=== PATIENT | female | born 1960 | race Hispanic/Latino ===

== ENCOUNTER 2017-11-23 07:42 | Inpatient (IN) | payer MEDICAID, OTHER ==
[~2017-11-23] VITALS: Ht 160 cm; Wt 79.4 kg
[2017-11-23 08:42] LABS: BASOPHILS % 0.8 % (0.0-1.0); EOSINOPHILS # (AUTO) 0.1 (0.0-0.4); EOSINOPHILS % 3.7 % (0.0-6.0); HEMATOCRIT 28.7 % (34.2-44.1); HEMOGLOBIN 8.9 g/dL (12.0-16.0); LYMPHOCYTES # (AUTO) 0.8 (1.0-3.2); LYMPHOCYTES % 20.5 % (18.0-39.1); MEAN CORPUSCULAR HEMOGLOBIN 26.4 pg (28-32); MEAN CORPUSCULAR VOLUME 85.2 fL (81-99); MONOCYTES # (AUTO) 0.2 (0.2-0.8); MONOCYTES % 5.3 % (4.4-11.3); NEUTROPHILS # (AUTO) 2.6 (2.1-6.9); NEUTROPHILS % 68.9 % (38.7-80.0); PLATELET COUNT 73 x10e3/uL (140-360); RED BLOOD COUNT 3.37 x10e6/uL (3.6-5.1); RED CELL DISTRIBUTION WIDTH 19.6 % (11.7-14.4)
[2017-11-23 08:47] LABS: INR 1.16; PROTHROMBIN TIME 13.9 seconds (11.9-14.5)
[2017-11-23 08:48] LABS: PARTIAL THROMBOPLASTIN TIME 32.4 seconds (23.8-35.5)
[2017-11-23 08:54] LABS: ALANINE AMINOTRANSFERASE 19 IU/L (0-55); ALBUMIN 3.1 g/dL (3.5-5.0); ALBUMIN/GLOBULIN RATIO 0.9 (0.8-2.0); ALKALINE PHOSPHATASE 386 IU/L (40-150); ANION GAP 13.6 mmol/L (8-16); BLOOD UREA NITROGEN 13 mg/dL (7-26); BUN/CREATININE RATIO 16 (6-25); CARBON DIOXIDE 21 mmol/L (22-29); CHLORIDE 112 mmol/L (98-107); CREATINE KINASE 36 IU/L (29-168); CREATININE, SERUM 0.83 mg/dL (0.57-1.11); EST GLOMERULAR FILTRATION RATE > 60 ML/MIN (60-); GLUCOSE 128 mg/dL (74-118); POTASSIUM 3.6 mmol/L (3.5-5.1); SODIUM 143 mmol/L (136-145)
--- NOTE | 2017-11-23 10:16 | Diagnostic Imaging Report ---
PROCEDURE: CHEST SINGLE (PORTABLE) COMPARISON: None. INDICATIONS: CHEST PAIN FINDINGS: LUNGS: Mild pulmonary edema. PLEURA: No effusions or pneumothorax. HEART \T\ MEDIASTINUM: The heart is enlarged. Sternotomy wire sutures and mediastinal clips are present. BONES \T\ SOFT TISSUES: No acute findings. CONCLUSION: Cardiomegaly with mild pulmonary edema. Michoacano King D.O. Dictated by: Michoacano King D.O. on 11/23/2017 at 10:15 Electronically approved by: Michoacano King D.O. on 11/23/2017 at 10:15
[2017-11-23] MEDS ORDERED: SODIUM CHLORIDE 0.9% 1000ML 2,000 ML ONE (11:23)
[2017-11-23] MEDS ORDERED: NALOXONE HCL 2MG/2 ML SYRINGE ONE (11:24)
[2017-11-23] MEDS ORDERED: SODIUM CHLORIDE FLUSH 10 ML SYR INJ PRN (11:45)
[2017-11-23 12:02] LABS: % IRON SATURATION 10 % (15-50); IRON 35 ug/dL (50-170); TOTAL IRON BINDING CAPACITY 344 ug/dL (261-478); TRANSFERRIN 246 mg/dL (180-382)
[2017-11-23] MEDS ORDERED: ASPIRIN 325 MG TAB PO STA (13:43)
[2017-11-23] MEDS ORDERED: MORPHINE SULFATE 2 MG/ML SYR IV STA (13:43)
[2017-11-23] MEDS ORDERED: ASPIRIN 325 MG TAB PO ONE (13:45)
[2017-11-23] MEDS ORDERED: MORPHINE SULFATE 2 MG/ML SYR IV ONE (13:45)
--- OUTSIDE RECORDS SUMMARY | 2017-11-23 15:32 | XMS REPORT | Clinical Summary ---
Author Author [facility] Address Unknown Phone Unavailable Care Team Providers Care Music Professor Name Role Phone PCP Unavailable Allergies Not on File Current Medications Not on file Active Problems Not on file Social History Tobacco Use Types Packs/Day Years Used Date Never Assessed Sex Assigned at Date Recorded Not on file Last Filed Vital Signs Not on file Plan of Treatment Not on file Results Not on fileafter 11/22/2016
--- OUTSIDE RECORDS SUMMARY | 2017-11-23 15:32 | XMS REPORT ---
Author Author [facility] Address Unknown Phone Unavailable Care Team Providers Care Rn Peritoneal Dialysis Name Role Phone SOLO MAYO Unavailable Unavailable Problems This patient has no known problems. Allergies, Adverse Reactions, Alerts This patient has no known allergies or adverse reactions. Medications This patient has no known medications. Results Test Description Test Time Test Comments Text Results Atomic Results Result Comments CHEST SINGLE (PORTABLE) [place] [address] Patient Name: ADIA COLES MR #: [id number] : 1960 Age/Sex: 57/F Req #: [id number] Adm Physician: Ordered by: SOLO MAYO MD Report #: [id number] Location: ER Room/Bed: Procedure: [id number] DX/CHEST SINGLE (PORTABLE) Exam Date: 11/23/17 Exam Time: 0905 REPORT STATUS: Signed PROCEDURE: CHEST SINGLE (PORTABLE) COMPARISON: None. INDICATIONS: CHEST PAIN FINDINGS: LUNGS: Mild pulmonary edema. PLEURA: No effusions or pneumothorax. HEART T MEDIASTINUM: The heart is enlarged. Sternotomy wire sutures and mediastinal clips are present. BONES T SOFT TISSUES: No acute findings. CONCLUSION: Cardiomegaly with mild pulmonary edema. Maria Fernanda King D.O. Dictated by: Maria Fernanda King D.O. on 11/23/2017 at 10:15 Electronically approved by: Maria Fernanda King D.O. on 11/23/2017 at 10:15 Dictated By: MARIA FERNANDA KING DO 1015 Transcribed By: THAIS on 11/23/17 1015 COPY TO: SOLO MAYO MD
[2017-11-23] MEDS ORDERED: ZOLOFT50 MG PO (18:25)
[2017-11-23] MEDS ORDERED: METOPROLOL TART25 MG PO (18:46)
[2017-11-23] MEDS ORDERED: FAMOTIDINE20 MG PO (18:46)
[2017-11-23] MEDS ORDERED: ATORVASTATIN CA20 MG PO (18:58)
[2017-11-23] MEDS ORDERED: LOSARTAN POTASS25 MG PO (18:58)
[2017-11-23] MEDS ORDERED: ULTRAM50 MG PO (18:58)
[2017-11-23] MEDS ORDERED: CITALOPRAM HBR20 MG PO (18:58)
[2017-11-23] MEDS ORDERED: CLOPIDOGREL75 MG PO ×2 (18:58→19:03)
[2017-11-23] MEDS ORDERED: FENOFIBRATE145 MG PO (18:58)
[2017-11-23] MEDS ORDERED: BUPROPION HCL75 MG PO (18:58)
[2017-11-23] MEDS ORDERED: FUROSEMIDE40 MG PO (18:58)
[2017-11-23] MEDS ORDERED: NEXIUM40 MG PO (19:03)
[2017-11-23] MEDS ORDERED: ASPIRIN81 MG PO (19:03)
[2017-11-23] MEDS ORDERED: PEPCID20 MG PO (19:03)
[2017-11-23 20:54] VITALS: BP 155/68
[2017-11-23 21:53] VITALS: BP 155/68
[2017-11-23] MEDS ORDERED: NITROGLYCERIN0.4 MG SL (22:20)
[2017-11-23] MEDS ORDERED: NITROGLYCERIN 0.4 MG SUBL SL PRN (22:30)
[2017-11-24] VITALS (7 sets, daily range): BP systolic 99–121; BP diastolic 52–59
[2017-11-24] MEDS: MORPHINE SULFATE 2 MG/ML SYR IV PRN ×2 (00:35→04:14)
[2017-11-24] MEDS ORDERED: INFLUENZA VIRUS VAC SPLIT INJ 0.5 ML SYR IM ONE (01:15)
[2017-11-24] MEDS ORDERED: MORPHINE SULFATE 2 MG/ML SYR IV PRN (05:30)
[2017-11-24 08:38] LABS: ALBUMIN 2.9 g/dL (3.5-5.0); BILIRUBIN,DIRECT 0.4 mg/dL (0.0-5.0)
--- NOTE | 2017-11-24 10:18 | Consultation ---
DATE OF CONSULTATION: November 24, 2017 GASTROENTEROLOGY CONSULTATION REASON FOR CONSULTATION: Anemia. HISTORY OF PRESENT ILLNESS: Ms. Yusuf is a 57-year-old woman who comes in with chest pain. She reports a history of chest pain. It frequently starts in the middle of her retrosternal area and radiates to her back and down her left arm. It is associated with fatigue and shortness of breath. When she does some deep breathing, it can be improved, but usually she is dependent on nitroglycerin. This episode did not relieve with nitroglycerin. She presented to the ER. It was of moderate severity. She reports that she was recently admitted at [facility] in August or September also for chest pain. She had some sort of evaluation there. She recalls that a lot of her health problems started back in March at which time she had a gallbladder rupture with multiorgan failure, and ultimately required even a partial colectomy with colostomy, which has since been reversed this past September or October. Since then, she has had fecal incontinence. She is not able to tell me why she ended up with the colostomy. She reports her memory has been poor. She reports that she has had abnormal liver tests since the gallbladder problems. She denies any overt bleeding. She had a colonoscopy not too long ago before the reversal of her colostomy. She has not had an upper endoscopy. She does not ever truly use NSAIDs, although she is on aspirin. For p.r.n. pain, she uses just Tylenol. She does have lower abdominal pain, which she said has been present since the ostomy reversal. She also has epigastric tenderness, but she is not sure how long she has had that. She denies any nausea, vomiting, dysphagia, or odynophagia. PAST MEDICAL HISTORY 1. Coronary artery disease, status post coronary artery bypass graft with history of angina requiring nitroglycerin. 2. Anemia. 3. Elevated LFTs. 4. Diabetes. 5. Hypertension. SURGICAL HISTORY: Includes cholecystectomy, colostomy and reversal, coronary artery bypass graft, . MEDICATIONS: Reviewed. Please see MAR medication reconciliation form. ALLERGIES: REVIEWED. PLEASE SEE MAR MEDICATION RECONCILIATION FORM. SOCIAL HISTORY: She previously smoked. She quit this past March in 2016 when she was in the hospital. She denies any alcohol use. FAMILY HISTORY: Positive for diabetes, coronary artery disease, cancer in her son, which was esophagus when he was only 26 or 27. Her maternal aunt had breast cancer. Her maternal uncle had some sort of cancer MOLD BREAKER related. Her actual brother had liver cancer associated with hepatitis. REVIEW OF SYSTEMS: A 12-system review is positive for that mentioned in the HPI, otherwise unremarkable. PHYSICAL EXAMINATION GENERAL: She is somewhat jaundiced appearing. HEENT: Pupils equal, round and reactive to light. NECK: Supple. LUNGS: Coarse. CARDIOVASCULAR: S1 and S2. ABDOMEN: Soft. She is mildly tender in the epigastric and lower abdomen. She has a surgical scar. Has no rebound or guarding. EXTREMITIES: No clubbing or cyanosis. PSYCH: Calm and cooperative. NEUROLOGIC: Alert and awake. HEM/ONC: No bruising or adenopathy. The electronic health records were reviewed for laboratory and radiologic studies, as well as history. ASSESSMENT 1. Pancytopenia with iron deficiency anemia. 2. Elevated liver function tests. 3. Chest pain/coronary artery disease. PLAN: At the current time, will get an ultrasound to evaluate better the liver parenchyma. Will check hepatitis studies. I would recommend that she have an upper endoscopy when evaluated and cleared by cardiology. Given that she has pancytopenia, she may need a hematology evaluation if no evidence of underlying cirrhosis is found, although it is possible her hematologic abnormalities are related to underlying liver disease. Thank you very much for asking me to see Ms. Yusuf. Any questions or concerns, please do not hesitate to contact me. Will follow along with you. Job#: [id number] MINDY
[2017-11-24] MEDS: CITALOPRAM HYDROBROMIDE 20 MG TAB PO SCH (11:50)
[2017-11-24] MEDS: FAMOTIDINE 20 MG TAB PO SCH ×2 (11:50→18:22)
[2017-11-24] MEDS: PANTOPRAZOLE SOD 40 MG TABEC PO SCH (11:50)
[2017-11-24] MEDS: METOPROLOL TARTRATE 25 MG TAB PO SCH (11:50)
[2017-11-24] MEDS: FUROSEMIDE 40 MG TAB PO SCH (11:50)
[2017-11-24] MEDS: BUPROPION HCL 75 MG TAB PO SCH (11:50)
[2017-11-24] MEDS: ISOSORBIDE DINITRATE 20 MG TAB PO SCH ×2 (11:50→18:22)
[2017-11-24] MEDS: ASPIRIN 81 MG CHEW TAB PO SCH (11:50)
[2017-11-24] MEDS: LOSARTAN POTASSIUM 25 MG TAB PO SCH (11:50)
--- NOTE | 2017-11-24 11:58 | Consultation ---
DATE OF CONSULTATION: November 23, 2017 REASON FOR CONSULTATION: Chest pain. CONSULTING PHYSICIAN: Dr. Mayberry. HPI: This is a pleasant 57-year-old female that presented with chest pain. According to the patient, she has been having chest pain for the last 4 months that radiated to her back, to her jaw, and to her arm. She stated that she lives in [place] and she recently relocated to [place] to live with her daughter and to seek a second opinion from another tanyard worker. She stated she was in the hospital at [place] in August with multiple medical problems that included rupture of gallbladder. She underwent a colostomy, which was later reversed, and she also had a cardiac catheterization that showed that she had two of her vessels occluded from the open heart surgery. She also stated that she had another tanyard worker that stated that she needs medical management and she does not need another open heart surgery. She has a history of AFib, was anticoagulated with Eliquis. She is jaundiced. She denies any palpitation, any dizziness, any shortness of breath, or diaphoresis. Her troponin was negative. EKG showed normal sinus rhythm with no ST abnormalities. PAST MEDICAL HISTORY: CAD, hypertension, thrombocytopenia, AFib, insomnia, anemia, borderline diabetes, and mesenteric ischemia. PAST SURGICAL HISTORY: Open heart surgery x4 vessels, ostomy with colostomy and reversal with a closure, cholecystectomy, and x2. FAMILY HISTORY: Positive for CAD. SOCIAL HISTORY: No smoking. No drinking. She lives at home with her daughter. MEDICATIONS: See med list. ALLERGIES: SHE IS ALLERGIC TO IODINE. REVIEW OF SYSTEMS: Negative except those mentioned above. PHYSICAL EXAMINATION VITAL SINGS: Temperature 97.3, heart rate 76, blood pressure 121/53, respirations 18, and oxygen saturation 100% on room air. GENERAL: She is alert, awake, and oriented x3. HEENT: Mucous membrane moist. NECK: Supple. LUNGS: Bilaterally clear to auscultation. CARDIOVASCULAR: S1 S2 present. ABDOMEN: Soft. EXTREMITIES: With no edema. NEUROLOGIC: Intact. LABORATORY DATA: Sodium 143, potassium 3.6, chloride 112, CO2 21, BUN 13, creatinine 0.83, and glucose 124. White blood cells 3.80, hemoglobin 8.9, hematocrit 28.7, and platelet 73. PT 13.9, PTT 32.4, and INR 1.16. IMPRESSION 1. Chest pain. 2. Coronary artery disease with coronary artery bypass grafting. 3. Hypertension. 4. History of atrial fibrillation. 5. Anemia. 6. History of thrombocytopenia with recent hospitalization. 7. She is jaundiced. 8. Borderline diabetes. 9. Hyperlipidemia. ASSESSMENT AND PLAN: She was recently admitted and discharged in August from [place]. She underwent a cardiac catheterization, so we will go ahead and get the medical record from over there. We will go ahead and get an echo to assess the LV and the valve function. We will check EKG. She has a history of AFib, was on Eliquis that was stopped. We will continue to hold that. We will check her liver function test. We will continue medical management for now due to recent catheterization and recent stress test that was abnormal. Further cardiac workup pending clinical course. Thank you for this consultation. Dictated by: Silverio Parisi NP Job#: [id number] SEAMUS
--- NOTE | 2017-11-24 17:27 | Diagnostic Imaging Report ---
EXAM: Liver Ultrasound INDICATION: Pancytopenia, elevated LFTs. COMPARISON: None. TECHNIQUE: Transverse and longitudinal images of the liver were obtained. FINDINGS: Liver: Size: 11.9 cm in the right midclavicular line, normal Appearance: Coarsened hepatic echotexture diffusely. Smooth contour Mass: Ill-defined hypoechoic lesion with subtle echogenic rim in the right hepatic dome measures 1.4 0.8 x 1.4 cm. Gallbladder: Surgically absent. Bile Ducts: Intrahepatic Ducts: No dilatation Extrahepatic Ducts: The CBD measures 0.4 cm in diameter. Free Fluid: Small right pleural effusion. IMPRESSION: 1. Diffuse coarsened hepatic echotexture. Indeterminate 1.4 cm lesion in the right hepatic lobe. Recommend CT or MRI abdomen without and with contrast liver mass protocol for further characterization of these findings. 2. Status post cholecystectomy. No significant biliary dilatation. Signed by: Dr. Everette Parisi M.D. on 11/24/2017 5:23 PM
[2017-11-24] MEDS: FENOFIBRATE 145 MG TAB PO SCH (20:48)
[2017-11-24] MEDS: ATORVASTATIN 20 MG TAB PO SCH (20:48)
[2017-11-25] VITALS (8 sets, daily range): BP systolic 96–129; BP diastolic 53–64
[2017-11-25] MEDS: TRAMADOL HCL 50 MG TAB PO PRN ×2 (02:11→08:50)
[2017-11-25] MEDS: ISOSORBIDE DINITRATE 20 MG TAB PO SCH ×2 (08:50→18:00)
[2017-11-25] MEDS: FAMOTIDINE 20 MG TAB PO SCH ×2 (08:50→18:00)
[2017-11-25] MEDS: CITALOPRAM HYDROBROMIDE 20 MG TAB PO SCH (08:50)
[2017-11-25] MEDS: PANTOPRAZOLE SOD 40 MG TABEC PO SCH (08:50)
[2017-11-25] MEDS: BUPROPION HCL 75 MG TAB PO SCH (08:50)
[2017-11-25] MEDS: FUROSEMIDE 40 MG TAB PO SCH (08:50)
[2017-11-25] MEDS: METOPROLOL TARTRATE 25 MG TAB PO SCH (08:50)
[2017-11-25] MEDS: ASPIRIN 81 MG CHEW TAB PO SCH (08:50)
[2017-11-25] MEDS: LOSARTAN POTASSIUM 25 MG TAB PO SCH (08:50)
[2017-11-25] MEDS: ATORVASTATIN 20 MG TAB PO SCH (20:45)
[2017-11-25] MEDS: FENOFIBRATE 145 MG TAB PO SCH (20:45)
[2017-11-26] VITALS (9 sets, daily range): BP systolic 88–139; BP diastolic 53–75
[2017-11-26] MEDS: ASPIRIN 81 MG CHEW TAB PO SCH (09:00)
[2017-11-26] MEDS: CITALOPRAM HYDROBROMIDE 20 MG TAB PO SCH (09:00)
[2017-11-26] MEDS: LOSARTAN POTASSIUM 25 MG TAB PO SCH (09:02)
[2017-11-26] MEDS: FUROSEMIDE 40 MG TAB PO SCH (09:02)
[2017-11-26] MEDS: ISOSORBIDE DINITRATE 20 MG TAB PO SCH ×2 (09:02→17:14)
[2017-11-26] MEDS: METOPROLOL TARTRATE 25 MG TAB PO SCH (09:03)
[2017-11-26] MEDS: PANTOPRAZOLE SOD 40 MG TABEC PO SCH (09:03)
[2017-11-26] MEDS: FAMOTIDINE 20 MG TAB PO SCH ×2 (09:03→17:14)
[2017-11-26] MEDS: BUPROPION HCL 75 MG TAB PO SCH (09:03)
[2017-11-26] MEDS: ATORVASTATIN 20 MG TAB PO SCH (20:43)
[2017-11-26] MEDS: FENOFIBRATE 145 MG TAB PO SCH (20:44)
[2017-11-27] VITALS (8 sets, daily range): BP systolic 101–134; BP diastolic 52–60
[2017-11-27] MEDS ORDERED: ALPRAZOLAM 0.25 MG TAB PO PRN (04:45)
[2017-11-27] MEDS ORDERED: ALPRAZOLAM 0.25 MG TAB PO ONE (04:45)
[2017-11-27 07:13] LABS: BASOPHILS % 0.7 % (0.0-1.0); EOSINOPHILS # (AUTO) 0.1 (0.0-0.4); EOSINOPHILS % 2.3 % (0.0-6.0); HEMATOCRIT 26.2 % (34.2-44.1); HEMOGLOBIN 8.2 g/dL (12.0-16.0); LYMPHOCYTES # (AUTO) 0.8 (1.0-3.2); LYMPHOCYTES % 18.9 % (18.0-39.1); MEAN CORPUSCULAR HEMOGLOBIN 26.5 pg (28-32); MEAN CORPUSCULAR HGB CONC 31.3 g/dL (31-35); MEAN CORPUSCULAR VOLUME 84.8 fL (81-99); MONOCYTES # (AUTO) 0.3 (0.2-0.8); NEUTROPHILS % 70.6 % (38.7-80.0); PLATELET COUNT 73 x10e3/uL (140-360); RED BLOOD COUNT 3.09 x10e6/uL (3.6-5.1); RED CELL DISTRIBUTION WIDTH 19.6 % (11.7-14.4)
[2017-11-27 07:52] LABS: ALANINE AMINOTRANSFERASE 16 IU/L (0-55); ALBUMIN 2.8 g/dL (3.5-5.0); ALBUMIN/GLOBULIN RATIO 0.8 (0.8-2.0); ALKALINE PHOSPHATASE 333 IU/L (40-150); BLOOD UREA NITROGEN 15 mg/dL (7-26); BUN/CREATININE RATIO 19 (6-25); CALCIUM 8.8 mg/dL (8.4-10.2); CARBON DIOXIDE 26 mmol/L (22-29); CHLORIDE 103 mmol/L (98-107); CREATININE, SERUM 0.78 mg/dL (0.57-1.11); EST GLOMERULAR FILTRATION RATE > 60 ML/MIN (60-); GLUCOSE 111 mg/dL (74-118); SODIUM 135 mmol/L (136-145)
[2017-11-27] MEDS: PANTOPRAZOLE SOD 40 MG TABEC PO SCH (09:18)
[2017-11-27] MEDS: BUPROPION HCL 75 MG TAB PO SCH (09:18)
[2017-11-27] MEDS: METOPROLOL TARTRATE 25 MG TAB PO SCH (09:18)
[2017-11-27] MEDS: ASPIRIN 81 MG CHEW TAB PO SCH (09:18)
[2017-11-27] MEDS: ISOSORBIDE DINITRATE 20 MG TAB PO SCH ×2 (09:18→16:55)
[2017-11-27] MEDS: LOSARTAN POTASSIUM 25 MG TAB PO SCH (09:18)
[2017-11-27] MEDS: FAMOTIDINE 20 MG TAB PO SCH ×2 (09:18→16:55)
[2017-11-27] MEDS: CITALOPRAM HYDROBROMIDE 20 MG TAB PO SCH (09:18)
[2017-11-27] MEDS: FUROSEMIDE 40 MG TAB PO SCH (09:18)
[2017-11-27] MEDS ORDERED: MAGNESIUM SULFATE 2GM/50ML 50 ML IV ONE ×3 (10:00→15:45)
[2017-11-27] MEDS ORDERED: MIDAZOLAM HCL 2 MG/2 ML VIAL ONE (14:37)
[2017-11-27] MEDS ORDERED: LIDOCAINE HCL 2% LOCAL INJ 5 ML SDV VIAL INJ ONE (18:48)
[2017-11-27] MEDS ORDERED: PROPOFOL IV EMULSION 10 MG/ML 20 ML VIAL ONE (18:48)
--- NOTE | 2017-11-27 18:50 | Diagnostic Imaging Report ---
PROCEDURE: CT ABDOMEN \T\ PELVIS W/WO CONTRAST TECHNIQUE: The abdomen and pelvis were scanned utilizing a multidetector helical scanner from the diaphragm to the lesser trochanter before and after the IV administration of 100 cc of Isovue 370 and the oral administration of water. Coronal and sagittal multiplanar reformations were obtained. COMPARISON: None. INDICATIONS: LIVER MASS FINDINGS: LOWER THORAX: Diffuse patchy groundglass opacities in both lungs. Small bilateral pleural effusions. HEPATOBILIARY: The liver has a cirrhotic morphology. There are no suspicious arterial enhancing lesions. Some ill-defined areas of arterial enhancement along the periphery of the right hepatic lobe are consistent with transient hepatic attenuation differences. No biliary ductal dilatation. The gallbladder is absent. SPLEEN: The spleen is enlarged, measuring 18.9 cm in craniocaudal dimension. PANCREAS: No focal masses or ductal dilatation. ADRENALS: No adrenal nodules. KIDNEYS/URETERS: No hydronephrosis, stones, or solid mass lesions. PELVIC ORGANS/BLADDER: A 3.3 cm calcified mass in the uterus is consistent with a fibroid. The bladder is nondistended. PERITONEUM / RETROPERITONEUM: Small amount of ascites in the pelvis There is a 4.2 x 3.4 cm fat-containing lesion in the anterior omentum in the left hemiabdomen (series 5, image 53). LYMPH NODES: No lymphadenopathy. VESSELS: Severe diffuse atherosclerosis of the aorta and its branches. The infrarenal aorta is mildly ectatic, measuring up to 2.3 cm (series 3, image 130). GI TRACT: There is mild wall thickening in the ascending colon. No evidence of obstruction. BONES AND SOFT TISSUES: Midline laparotomy scar. Multilevel degenerative changes of the thoracic and lumbar spine. Bilateral L5 pars defects without spondylolisthesis. Status post median sternotomy. IMPRESSION: 1. Cirrhotic liver morphology. No suspicious liver masses are identified. Recommend a followup liver ultrasound in 6 months to ensure stability or resolution of the lesion previously identified on ultrasound. 2. Mild wall thickening of the ascending colon. Assuming there is no clinical evidence of colitis, this is probably due to portal hypertensive colopathy. 3. Small bilateral pleural effusions and patchy groundglass opacities in both lung bases. The findings suggest pulmonary edema. 4. 4.2 cm fat-containing omental lesion in the left hemiabdomen. This is probably related to postsurgical omental infarct. Recommend attention on followup. Dictated by: Cuco Shrestha M.D. on 11/27/2017 at 18:50 Electronically approved by: Cuco Shrestha M.D. on 11/27/2017 at 18:50
[2017-11-27] MEDS ORDERED: SODIUM CHLORIDE 0.9% 50ML 50 ML ONE (19:16)
[2017-11-27] MEDS ORDERED: IOPAMIDOL 300MG/ML 100 ML INFUS..BTL IV ONE (19:17)
[2017-11-27] MEDS ORDERED: IOPAMIDOL 370 MG/ML 200 ML INFUS..BTL INJ ONE (19:19)
[2017-11-27] MEDS: FENOFIBRATE 145 MG TAB PO SCH (20:57)
[2017-11-27] MEDS: ATORVASTATIN 20 MG TAB PO SCH (20:57)
[2017-11-28] VITALS (7 sets, daily range): BP systolic 73–155; BP diastolic 56–84
[2017-11-28 07:12] LABS: BASOPHILS % 0.5 % (0.0-1.0); EOSINOPHILS # (AUTO) 0.1 (0.0-0.4); EOSINOPHILS % 2.2 % (0.0-6.0); HEMATOCRIT 27.3 % (34.2-44.1); HEMOGLOBIN 8.5 g/dL (12.0-16.0); LYMPHOCYTES # (AUTO) 0.8 (1.0-3.2); LYMPHOCYTES % 18.4 % (18.0-39.1); MEAN CORPUSCULAR HEMOGLOBIN 26.3 pg (28-32); MEAN CORPUSCULAR HGB CONC 31.1 g/dL (31-35); MEAN CORPUSCULAR VOLUME 84.5 fL (81-99); MONOCYTES # (AUTO) 0.3 (0.2-0.8); MONOCYTES % 7.7 % (4.4-11.3); NEUTROPHILS # (AUTO) 2.9 (2.1-6.9); PLATELET COUNT 69 x10e3/uL (140-360); RED BLOOD COUNT 3.23 x10e6/uL (3.6-5.1); RED CELL DISTRIBUTION WIDTH 19.5 % (11.7-14.4)
[2017-11-28 07:40] LABS: ALANINE AMINOTRANSFERASE 20 IU/L (0-55); ALBUMIN 2.7 g/dL (3.5-5.0); ALBUMIN/GLOBULIN RATIO 0.7 (0.8-2.0); ALKALINE PHOSPHATASE 339 IU/L (40-150); ANION GAP 12.4 mmol/L (8-16); BLOOD UREA NITROGEN 12 mg/dL (7-26); BUN/CREATININE RATIO 14 (6-25); CALCIUM 9.1 mg/dL (8.4-10.2); CARBON DIOXIDE 24 mmol/L (22-29); CHLORIDE 107 mmol/L (98-107); CREATININE, SERUM 0.85 mg/dL (0.57-1.11); EST GLOMERULAR FILTRATION RATE > 60 ML/MIN (60-); GLUCOSE 175 mg/dL (74-118); MAGNESIUM 2.1 MG/DL (1.3-2.1); POTASSIUM 4.4 mmol/L (3.5-5.1); SODIUM 139 mmol/L (136-145)
[2017-11-28] MEDS: ASPIRIN 81 MG CHEW TAB PO SCH (08:55)
[2017-11-28] MEDS: LOSARTAN POTASSIUM 25 MG TAB PO SCH (08:55)
[2017-11-28] MEDS: CITALOPRAM HYDROBROMIDE 20 MG TAB PO SCH (08:55)
[2017-11-28] MEDS: PANTOPRAZOLE SOD 40 MG TABEC PO SCH (08:56)
[2017-11-28] MEDS: METOPROLOL TARTRATE 25 MG TAB PO SCH (08:56)
[2017-11-28] MEDS: FAMOTIDINE 20 MG TAB PO SCH ×2 (08:56→16:37)
[2017-11-28] MEDS: BUPROPION HCL 75 MG TAB PO SCH (08:56)
[2017-11-28] MEDS: FUROSEMIDE 40 MG TAB PO SCH (08:56)
[2017-11-28] MEDS: ISOSORBIDE DINITRATE 20 MG TAB PO SCH ×2 (08:56→16:34)
[2017-11-28] MEDS: FENOFIBRATE 145 MG TAB PO SCH (20:04)
[2017-11-28] MEDS: ATORVASTATIN 20 MG TAB PO SCH (20:04)
[2017-11-29] VITALS (8 sets, daily range): BP systolic 98–127; BP diastolic 54–70
[2017-11-29] MEDS: FAMOTIDINE 20 MG TAB PO SCH ×2 (08:59→17:29)
[2017-11-29] MEDS: ASPIRIN 81 MG CHEW TAB PO SCH (08:59)
[2017-11-29] MEDS: PANTOPRAZOLE SOD 40 MG TABEC PO SCH (08:59)
[2017-11-29] MEDS: FUROSEMIDE 40 MG TAB PO SCH (08:59)
[2017-11-29] MEDS: ISOSORBIDE DINITRATE 20 MG TAB PO SCH ×2 (08:59→17:29)
[2017-11-29] MEDS: BUPROPION HCL 75 MG TAB PO SCH (08:59)
[2017-11-29] MEDS: METOPROLOL TARTRATE 25 MG TAB PO SCH (08:59)
[2017-11-29] MEDS: CITALOPRAM HYDROBROMIDE 20 MG TAB PO SCH (08:59)
[2017-11-29] MEDS: LOSARTAN POTASSIUM 25 MG TAB PO SCH (08:59)
[2017-11-29] MEDS: ATORVASTATIN 20 MG TAB PO SCH (21:56)
[2017-11-29] MEDS: FENOFIBRATE 145 MG TAB PO SCH (21:56)
[2017-11-30] VITALS: BP 112/59
[2017-11-30 04:00] VITALS: BP 124/66
[2017-11-30] MEDS: ASPIRIN 81 MG CHEW TAB PO SCH (08:35)
[2017-11-30] MEDS: CITALOPRAM HYDROBROMIDE 20 MG TAB PO SCH (08:35)
[2017-11-30] MEDS: LOSARTAN POTASSIUM 25 MG TAB PO SCH (08:36)
[2017-11-30] MEDS: PANTOPRAZOLE SOD 40 MG TABEC PO SCH (08:36)
[2017-11-30] MEDS: ISOSORBIDE DINITRATE 20 MG TAB PO SCH ×2 (08:36→16:38)
[2017-11-30] MEDS: BUPROPION HCL 75 MG TAB PO SCH (08:36)
[2017-11-30] MEDS: FUROSEMIDE 40 MG TAB PO SCH (08:36)
[2017-11-30] MEDS: FAMOTIDINE 20 MG TAB PO SCH ×2 (08:36→16:38)
[2017-11-30] MEDS: METOPROLOL TARTRATE 25 MG TAB PO SCH (08:36)
[2017-11-30 09:08] VITALS: BP 131/59
[2017-11-30 09:36] VITALS: BP 131/69
[2017-11-30 12:00] VITALS: BP 99/54
[2017-11-30] MEDS ORDERED: INFLUENZA VIRUS VAC SPLIT INJ 0.5 ML SYR IM NR (15:00)
[2017-11-30 15:46] VITALS: BP 110/57
--- NOTE | 2017-12-01 07:23 | Consultation ---
DATE OF CONSULTATION: November 27, 2017 REASON FOR CONSULT: Chest pain; requested by Dr. Jodi Owens. THREAD LASTER: Dr. Eleuterio Jackson. HISTORY: I saw and evaluated this patient on November 27, 2017. She is a very nice 57-year-old lady with a history of coronary artery bypass grafting about 10 years ago who was admitted with chest pain and shortness of breath. She had also been recently admitted at [facility]. She had a myocardial infarction in 2000 that was treated with a 3-vessel coronary artery bypass. She has been living in [place] and had a perforated gallbladder in 2017. A colostomy was required at that time. On August 18, 2017, she underwent reversal of the colostomy. She did well initially, but 2 days later, she had an acute myocardial infarction. She was transferred to a larger hospital where a wet process head miller evaluated her. Apparently, the feeling was that there had not been a myocardial infarction. A stress test was apparently negative. She was discharged, although a cardiac catheterization had been recommended. She was at home with her daughter several weeks ago when chest pain again developed and she went to the emergency room at [place]. Her cardiac enzymes were elevated at that time with a peak troponin I of approximately 1.5. Echocardiogram showed EF of 30% to 35% with moderate mitral regurgitation and a dilated left atrium. There was also moderate tricuspid regurgitation. A carotid ultrasound showed mild stenosis of the left internal carotid artery of approximately 50% to 69%. There did not appear to be any hemodynamically significant lesions of the right internal carotid artery, although there was a large plaque. Cardiac catheterization performed by Dr. 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 There was a patent vein graft to an obtuse marginal. The LAD had an 80% proximal lesion and a left main stenosis of 80% was present as well. The menominee circumflex and right coronary arteries were occluded. Surgical revascularization was recommended. Ejection fraction was 35% to 40% by left ventriculogram. Patient went home and did not follow up. On this occasion, she developed recurrent chest pain and came into the hospital at [facility]. She told her providers that another wet process head miller had told her that she does not need open heart surgery. There is a history of atrial fibrillation which was treated with Eliquis. Patient has elevated alkaline phosphatase and is jaundiced on this admission. CT scan of the liver and ultrasound are compatible with cirrhosis. EKG shows sinus rhythm and she is not in atrial fibrillation. A repeat echocardiogram performed On November 24, 2016, shows ejection fraction estimated at 55% to 60% with moderate tricuspid regurgitation and mitral regurgitation. Left ventricular end-diastolic dimension was 5.11 cm with an end systolic dimension of 3.6 cm. EGD showed grade 3 varices which were large and also occluding the esophageal lumen. The varices were not actively bleeding. There was a small hiatus hernia. Surgical evaluation is now recommended. MEDICATIONS AT HOME: Include aspirin, Cozaar, HydroDIURIL, Lipitor, Lopressor, Nexium, Pepcid, Plavix, Ultram. Patient has taken Eliquis in the past. ALLERGIES: IODINE. PAST MEDICAL HISTORY: Positive for coronary artery disease, hypertension, hyperlipidemia and possible cirrhosis. FAMILY HISTORY: Positive for diabetes and hypertension. PAST SURGICAL HISTORY: Positive for section and coronary artery bypass grafting. She has had cholecystectomy, colostomy and a colostomy reversal. SOCIAL HISTORY: Patient is . She recently came to live with her daughter. She had been in [place], but is now living in [place]. She is a one and a half pack per day smoker for more than 40 years. Alcohol use is unclear. No IV drugs. REVIEW OF SYSTEMS GENERAL: Positive for fatigue and malaise. NEUROLOGIC: Negative for focal weakness in the extremities or dysarthria. HEENT: Negative for decreased vision and decreased hearing. CARDIAC: Positive for chest pain as above. Positive for palpitation. PULMONARY: Positive for shortness of breath. Negative for wheezing. GI: No constipation or diarrhea. : Negative for hematuria or dysuria. ENDOCRINE: Negative for polyuria or polydipsia. VASCULAR: Negative for claudication. SKIN: Negative for rash or itching. HEMATOLOGIC: Negative for clotting or bleeding. INFECTIOUS: Negative for fever or sweating. PSYCHIATRIC: Negative for depression or anxiety. PHYSICAL EXAMINATION GENERAL: A jaundiced lady, lying flat in bed. Appears her stated age. VITAL SIGNS: Blood pressure 145/70, pulse 80 and regular, respirations 16 and unlabored. NECK: Supple and nontender. No JVD. CARDIAC: Shows a regular rate and rhythm. There is a normal S1 and S2. There is no S4, S3, or rub. There is a soft 2/6 systolic murmur heard best at the upper sternal borders. The sternum is stable and well healed. No sternal click. LUNGS: Clear to auscultation and percussion bilaterally. ABDOMEN: Globoid and benign. There are good bowel sounds. There is no hepatosplenomegaly. BACK: No CVA tenderness. No muscular spasm. EXTREMITIES: No cyanosis, clubbing or edema. VASCULAR: Carotids 2+/2+ bilaterally. No carotid bruits. Radials 2+/2+ bilaterally. Brachials 2+/2+ bilaterally. Ulnars 1+/2+ bilaterally. Femorals 2+/2+ bilaterally. SKIN: No rashes or nonhealing ulcers. MUSCULOSKELETAL: Full range of motion at all joints. No joint swelling. NEUROLOGIC: Cranial nerves II through XII intact. Sensation intact to light touch and pinprick bilaterally. Strength is 5/5 in all extremities. LYMPHATICS: Negative for cervical, clavicular, femoral adenopathy. LABORATORIES: Imaging studies as above. EGD shows substantial esophageal varices. Sodium 135, potassium 4.0, BUN 15, creatinine 0.78, alkaline phosphatase elevated at 333, total bilirubin 1.0, direct bilirubin 0.4. IMPRESSION: Recurrent coronary artery disease in a patient who had previous coronary artery bypass grafting. There is evidence of cirrhosis with large esophageal varices. Redo coronary artery bypass grafting is being considered. I will discuss this with her other physicians. Thank you very much for asking me to see this nice lady. Job#: [id number]
== END 2017-11-30 16:53 | disposition home or self-care (01) | DRG 238 ==
LOC: ER 07:42 → EDBEDREQ 12:19 → ERHOLD 15:28 → MED/SURG 20:41
PROVIDERS: ADMIT Internal Medicine; ATTEND Internal Medicine
PROC: 06L34CZ Occlusion of Esophageal Vein with Extraluminal Device, Percutaneous Endoscopic Approach (ICD-10-PCS; principal; 2017-11-27 10:30)
PROC: 0DB98ZX Excision of Duodenum, Via Natural or Artificial Opening Endoscopic, Diagnostic (ICD-10-PCS; principal; 2017-11-27 10:30)
PROC: 0DB78ZX Excision of Stomach, Pylorus, Via Natural or Artificial Opening Endoscopic, Diagnostic (ICD-10-PCS; principal; 2017-11-27 10:30)
DX: I25.810 Atherosclerosis of coronary artery bypass graft(s) without angina pectoris (principal); D61.818 Other pancytopenia; K74.60 Unspecified cirrhosis of liver; I85.10 Secondary esophageal varices without bleeding; I11.0 Hypertensive heart disease with heart failure; I50.22 Chronic systolic (congestive) heart failure; I08.1 Rheumatic disorders of both mitral and tricuspid valves; I25.10 Atherosclerotic heart disease of native coronary artery without angina pectoris; E78.5 Hyperlipidemia, unspecified; I48.0 Paroxysmal atrial fibrillation; E11.9 Type 2 diabetes mellitus without complications; I65.22 Occlusion and stenosis of left carotid artery; I25.2 Old myocardial infarction; Z87.891 Personal history of nicotine dependence; F41.9 Anxiety disorder, unspecified; K29.70 Gastritis, unspecified, without bleeding; K44.9 Diaphragmatic hernia without obstruction or gangrene; Z88.5 Allergy status to narcotic agent; Z79.82 Long term (current) use of aspirin; Z79.02 Long term (current) use of antithrombotics/antiplatelets
CPT/HCPCS: 36415; 43239; 71045; 74178; 76705; 80053; 80061; 80076; 82105; 82550; 82553; 82607; 83540; 83735; 84466; 84484; 85025; 85610; 85730; 86803; 87340; 88305; 88312; 93005; 93306; 99284; J2001; J2250; J2270; J2310; J7030; Q9967

== ENCOUNTER 2018-01-08 10:36 | Inpatient (IN) | payer MEDICAID, MEDICARE, OTHER ==
[~2018-01-08] VITALS: Ht 157.5 cm; Wt 67.3 kg
[2018-01-08] VITALS (43 sets, daily range): BP systolic 78–161; BP diastolic 49–99
[~2018-01-08 10:36] MED LIST: ASPIRIN81 MG PO; ATORVASTATIN CA20 MG PO; BUPROPION HCL75 MG PO; CITALOPRAM HBR20 MG PO; CLOPIDOGREL75 MG PO; FAMOTIDINE20 MG PO; FENOFIBRATE145 MG PO; FUROSEMIDE40 MG PO; LOSARTAN POTASS25 MG PO; METOPROLOL TART25 MG PO; NEXIUM40 MG PO; NITROGLYCERIN0.4 MG SL; PEPCID20 MG PO; ULTRAM50 MG PO; ZOLOFT50 MG PO
--- OUTSIDE RECORDS SUMMARY | 2018-01-08 10:38 | XMS REPORT | Clinical Summary ---
Author Author [facility] Address Unknown Phone Unavailable Care Team Providers Care Industrial Relations Commissioner Name Role Phone PCP Unavailable Allergies Not on File Current Medications Not on file Active Problems Not on file Social History Tobacco Use Types Packs/Day Years Used Date Never Assessed Sex Assigned at Date Recorded Not on file Last Filed Vital Signs Not on file Plan of Treatment Not on file Results Not on fileafter 01/07/2017
--- OUTSIDE RECORDS SUMMARY | 2018-01-08 10:38 | XMS REPORT | Continuity of Care Document ---
Author Author [facility] Organization [facility] Address [address] [place] [address] Phone Unavailable Care Team Providers Care Emergency Vehicle Technician Name Role Phone NONSTAFF PCP Unavailable Insurance Providers Guarantor Adia Coles Address [address] [place] [address] Email NONE Payer Medicaid Pending Subscriber's Name Adia Coles Advance Directives Directive Response Recorded Date/Time Does the patient have an advance directive? No 11/23/17 9:38pm If yes, is advance directive on file with [facility]? No 11/23/17 9:38pm If not on file with [facility] will patient provide a copy? No 11/23/17 9:38pm Do you have a Directive to Physician? No 11/23/17 8:29am Do you have a Medical Power of Fiber Picker? No 11/23/17 8:29am Do you have an out of hospital Do Not Resuscitate Order? No 11/23/17 8:29am Do you have any special needs we should be aware of? No 11/23/17 8:29am Do you have a support person here with you today? Yes 11/23/17 8:29am Did patient receive Notice of Privacy Practices? Yes 11/23/17 8:29am Did patient receive patient rights and responsibilities? Yes 11/23/17 8:29am Problems Medical Problem Onset Date Status Anemia Unknown Chest pain Unknown Medications Current Home Medications Medication Dose Units Route Directions Days Qty Instructions Start Date Aspirin 81 Mg Tab.chew 81 Mg Oral Daily Atorvastatin Calcium 20 Mg Tablet 40 Mg Oral Bedtime 30 Tab Bupropion Hcl 75 Mg Tablet 75 Mg Oral Daily 30 Tab Citalopram Hydrobromide (Citalopram Hbr) 20 Mg Tablet 40 Mg Oral Daily Esomeprazole Magnesium (Nexium) 40 Mg Capsule.dr 40 Mg Oral Daily PROTONIX THERAPEUTIC SUBSTITUTE FOR NEXIUM PER [facility] Famotidine 20 Mg Tab 20 Mg Oral Twice A Day 30 Tab Fenofibrate Nanocrystallized (Fenofibrate) 145 Mg Tablet 135 Mg Oral Bedtime Furosemide 40 Mg Tablet 40 Mg Oral Daily 30 Tab Losartan Potassium 25 Mg Tablet 25 Mg Oral Daily Metoprolol Tartrate 25 Mg Tablet 12.5 Mg Oral Daily Nitroglycerin 0.4 Mg Tab.subl 0.4 Mg Sublingual Every 5 Minutes Tramadol Hcl (Ultram) 50 Mg Tablet 50 Mg Oral Twice A Day as needed for Pain Past Home Medications Medication Directions Ordered Status Clopidogrel Bisulfate (Clopidogrel) 75 Mg Tablet, 75 Mg Oral Daily Discontinued Clopidogrel Bisulfate (Clopidogrel) 75 Mg Tablet, 75 Mg Oral Daily Discontinued Famotidine (Pepcid) 20 Mg Tablet, 20 Mg Oral Daily Discontinued Sertraline Hcl (Zoloft) 50 Mg Tablet, 100 Mg Oral Daily Discontinued Family History Relationship Condition Age at Onset Recorded Date/Time 33 Father Family history of coronary artery disease Not Recorded 11/23/2017 10:01pm 33 Father Family history of diabetes mellitus Not Recorded 11/23/2017 10: 01pm 30 Mother Family history of hypertension Not Recorded 11/23/2017 10:02pm Social History Social History Problem Response Recorded Date/Time Onset Date Status Hx Psychiatric Problems Yes 11/23/2017 9:38pm Not Applicable Not Applicable Hx Eating Disorder No 11/23/2017 9:38pm Not Applicable Not Applicable Hx Substance Use Disorder No 11/23/2017 9:38pm Not Applicable Not Applicable Hx Depression Yes 11/23/2017 9:38pm Not Applicable Not Applicable Hx Alcohol Use No 11/23/2017 9:38pm Not Applicable Not Applicable Hx Substance Use Treatment No 11/23/2017 9:38pm Not Applicable Not Applicable Hx Physical Abuse No 11/23/2017 9:38pm Not Applicable Not Applicable Smoking Status Start Date Stop Date Former smoker Hospital Discharge Instructions No hospital discharge instruction information available. Plan of Care Discharge Date 11/30/17 4:53pm Disposition HOME, SELF-CARE Instructions/Education Provided Chest Pain - Chest Wall Prescriptions See Medication Section Referrals (Cardiology) Order Date: 5-7 Days Entered Date: 11/30/2017 1:18pm Reason(s) for Referral: Chest pain Family history of coronary artery disease NO GROUP ASSOCIATION (Cardiology) Order Date: 2 Weeks Entered Date: 11/30/2017 1:18pm Reason(s) for Referral: Chest pain Family history of coronary artery disease Additional Instructions/Education Cardiac Diet Functional Status Query Response Date Recorded Assistive Devices None November 23, 2017 9:53pm Ambulation Ability Independent November 23, 2017 9:53pm Toileting Ability Independent November 30, 2017 9:12am Allergies, Adverse Reactions, Alerts Allergen Type Severity Reaction Status Last Updated Morphine Allergy Intermediate Active 11/28/17 Immunizations No immunization information available. Vital Signs Acute Vital Signs Vital Response Date/Time Temperature (Fahrenheit) 97.7 degrees F (97.6 - 99.5) 11/30/2017 3:46pm Pulse Pulse Rate (adult) 76 bpm (60 - 90) 11/30/2017 3:46pm Respiratory Rate 19 bpm (12 - 24) 11/30/2017 3:46pm Blood Pressure 110/57 mm Hg 11/30/2017 3:46pm Height 5 ft 3 in 11/23/2017 7:57am Weight 175 lb 11/23/2017 7:57am Body Mass Index 31.0 kg/m^2 11/23/2017 9:38pm Results Laboratory Results Test Name Result Units Flags Reference Collection Date/Time Result Date/ Time Comments White Blood Count 4.13 x10e3/uL L 4.8-10.8 11/28/2017 6:33am 11/28/2017 7:19am Red Blood Count 3.23 x10e6/uL L 3.6-5.1 11/28/2017 6:33am 11/28/2017 7: 19am Hemoglobin 8.5 g/dL L 12.0-16.0 11/28/2017 6:33am 11/28/2017 7:19am Hematocrit 27.3 % L 34.2-44.1 11/28/2017 6:3311/28/2017 7:19am Mean Corpuscular Volume 84.5 fL 81-99 11/28/2017 6:11/28/2017 7: 19am Mean Corpuscular Hemoglobin 26.3 pg L 28-32 11/28/2017 6:332017 7:19am Mean Corpuscular Hemoglobin Concent 31.1 g/dL 31-35 11/28/2017 6:11/28/2017 7:19am Red Cell Distribution Width 19.5 % H 11.7-14.4 11/28/2017 6:2017 7:19am Platelet Count 69 x10e3/uL L 140-360 11/28/2017 6:11/28/2017 7: 19am Neutrophils (%) (Auto) 71.0 % 38.7-80.0 11/28/2017 6:11/28/2017 7: 19am Lymphocytes (%) (Auto) 18.4 % 18.0-39.1 11/28/2017 6:11/28/2017 7: 19am Monocytes (%) (Auto) 7.7 % 4.4-11.3 11/28/2017 6:11/28/2017 7: 19am Eosinophils (%) (Auto) 2.2 % 0.0-6.0 11/28/2017 6:11/28/2017 7: 19am Basophils (%) (Auto) 0.5 % 0.0-1.0 11/28/2017 6:11/28/2017 7:19am IM GRANULOCYTES % 0.2 % 0.0-1.0 11/28/2017 6:11/28/2017 7:19am Neutrophils # (Auto) 2.9 2.1-6.9 11/28/2017 6:11/28/2017 7:19am Lymphocytes # (Auto) 0.8 L 1.0-3.2 11/28/2017 6:11/28/2017 7: 19am Monocytes # (Auto) 0.3 0.2-0.8 11/28/2017 6:am 11/28/2017 7:19am Eosinophils # (Auto) 0.1 0.0-0.4 11/28/2017 6:33am 11/28/2017 7:19am Basophils # (Auto) 0.0 0.0-0.1 11/28/2017 6:33am 11/28/2017 7:19am Absolute Immature Granulocyte (auto 0.01 x10e3/uL 0-0.1 11/28/2017 6: 33am 11/28/2017 7:19am Prothrombin Time 13.9 seconds 11.9-14.5 11/23/2017 8:34am 11/23/2017 8: 59am Prothromb Time International Ratio 1.16 11/23/2017 8:34am 2017 8:59am Oral Anticoagulant Therapy INR Values: 1. Low Intensity Therapy 1.5 - 2.0 2. Moderate Intensity Therapy 2.0 - 3.0 3. High Intensity Therapy(1) 2.5 - 3.5 4. High Intensity Therapy(2) 3.0 - 4.0 5. Panic Value INR > 5.0 Activated Partial Thromboplast Time 32.4 seconds 23.8-35.5 11/23/2017 8: 34am 11/23/2017 8:59am Sodium Level 139 mmol/L 136-145 11/28/2017 6:33am 11/28/2017 7:43am Potassium Level 4.4 mmol/L 3.5-5.1 11/28/2017 6:33am 11/28/2017 7:43am Chloride Level 107 mmol/L 98-107 11/28/2017 6:33am 11/28/2017 7:43am Carbon Dioxide Level 24 mmol/L 22-11/28/2017 6:33am 11/28/2017 7: 43am Anion Gap 12.4 mmol/L 8-16 11/28/2017 6:33am 11/28/2017 7:43am Blood Urea Nitrogen 12 mg/dL 7-11/28/2017 6:3311/28/2017 7:43am Creatinine 0.85 mg/dL 0.57-1.11 11/28/2017 6:33am 11/28/2017 7:43am BUN/Creatinine Ratio 14 6-25 11/28/2017 6:33am 11/28/2017 7:43am Estimat Glomerular Filtration Rate > 60 ML/MIN 60- 11/28/2017 6:33am 7:43am Ranges were taken from the National Kidney Disease Education Program and the National Kidney Foundation literature. Reference ranges: 60 or greater: Normal 16-59 (for 3 consecutive months): Chronic kidney disease 15 or less: Kidney failure Glucose Level 175 mg/dL H 74-118 11/28/2017 6:33am 11/28/2017 7:43am Calcium Level 9.1 mg/dL 8.4-10.2 11/28/2017 6:33am 11/28/2017 7:43am Magnesium Level 2.1 MG/DL 1.3-2.1 11/28/2017 6:33am 11/28/2017 7:43am Iron Level 35 ug/dL L 50-170 11/23/2017 8:34am 11/23/2017 12:04pm Total Iron Binding Capacity 344 ug/dL 261-478 11/23/2017 8:34am 2017 12:04pm Percent Iron Saturation 10 % L 15-50 11/23/2017 8:34am 11/23/2017 12: 04pm Transferrin 246 mg/dL 180-382 11/23/2017 8:34am 11/23/2017 12:04pm Total Bilirubin 1.8 mg/dL H 0.2-1.2 11/28/2017 6:33am 11/28/2017 7:43am Direct Bilirubin 0.4 mg/dL 0.0-5.0 11/24/2017 12:30am 11/24/2017 8: 40am Aspartate Amino Transf (AST/SGOT) 29 IU/L 5-34 11/28/2017 6:33am 2017 7:43am Alanine Aminotransferase (ALT/SGPT) 20 IU/L 0-55 11/28/2017 6:33am 7:43am Total Protein 6.5 g/dL 6.5-8.1 11/28/2017 6:33am 11/28/2017 7:43am Albumin 2.7 g/dL L 3.5-5.0 11/28/2017 6:33am 11/28/2017 7:43am Globulin 3.8 g/dL H 2.3-3.5 11/28/2017 6:33am 11/28/2017 7:43am Albumin/Globulin Ratio 0.7 L 0.8-2.0 11/28/2017 6:33am 11/28/2017 7: 43am Alkaline Phosphatase 339 IU/L H 40-150 11/28/2017 6:33am 11/28/2017 7: 43am Triglycerides Level 176 MG/DL H 0-149 11/24/2017 12:30am 11/24/2017 1: 36am Cholesterol Level 176 MD/DL 0-199 11/24/2017 12:30am 11/24/2017 1:36am Less than 200 mg/dL Low Risk 201 - 239 mg/dL Borderline Risk 240 mg/dl and greater High Risk LDL Cholesterol 106 MG/DL 60-130 11/24/2017 12:30am 11/24/2017 1:36am HDL Cholesterol 35 MG/DL L 40-60 11/24/2017 12:30am 11/24/2017 1:36am Cholesterol/HDL Ratio 5.0 H 3.0-3.6 11/24/2017 12:30am 11/24/2017 1: 36am Creatine Kinase 28 IU/L L 29-168 11/24/2017 12:30am 11/24/2017 1:10am Creatine Kinase MB 1.00 ng/mL 0-5.0 11/24/2017 12:30am 11/24/2017 1: 08am Troponin I 0.02 ng/mL 0.0-0.78 11/24/2017 12:30am 11/24/2017 1:08am Vitamin B12 Level 445 pg/mL 213-816 11/23/2017 8:34am 11/23/2017 12: 32pm Alpha Fetoprotein 1.6 ng/mL 0.0-8.3 11/24/2017 10:25am 11/25/2017 9: 09am Yasmine ECLIA methodology Performed at: - [facility] [id number] Centerpuncher: Cosme Martinez MD, Phone: [phone] Hepatitis B Surface Antigen Negative 11/24/2017 10:25am 11/27/2017 9:50am Hepatitis C Antibody 0.1 11/24/2017 10:25am 11/27/2017 9:50am Reference Range: 0.0 - 0.9 s/co ratio Negative: < 0.8 Indeterminate: 0.8 - 0.9 Positive: > 0.9 The CDC recommends that a positive HCV antibody result be followed up with a HCV Nucleic Acid Amplification test (304144). [facility] [address] Dir: Cosme Martinez MD For inquiries, the physician may contact Branch: [phone] Lab: [phone] Procedures Procedure Status Date Provider(s) EGD with biopsy Completed 11/27/17 SHYAM BAEZA MD EGD with biopsy Completed 11/27/17 SHYAM BAEZA MD US liver Active 11/24/17 CATARINO HIDALGO MD Computed tomography of abdomen and pelvis without then with contrast Active 11/27/17 SHYAM BAEZA MD Encounters Encounter Location Arrival/Admit Date Discharge/Depart Date Attending Provider Discharged Inpatient [facility] 11/23/17 3:28pm 11/30/17 4:53pm SUMIT WARE MD
[2018-01-08] MEDS ORDERED: ONDANSETRON HCL INJ 2 MG/ML VIAL IV STA (10:49)
[2018-01-08] MEDS ORDERED: ASPIRIN 81 MG CHEW TAB PO ONE ×2 (11:00→12:00)
[2018-01-08] MEDS ORDERED: NITROGLYCERIN 2% OINT 1 GM PKT TOP ONE (11:00)
[2018-01-08 11:07] LABS: BASOPHILS % 0.5 % (0.0-1.0); EOSINOPHILS # (AUTO) 0.1 (0.0-0.4); EOSINOPHILS % 1.2 % (0.0-6.0); HEMATOCRIT 33.6 % (34.2-44.1); HEMOGLOBIN 10.5 g/dL (12.0-16.0); LYMPHOCYTES # (AUTO) 0.8 (1.0-3.2); LYMPHOCYTES % 14.3 % (18.0-39.1); MEAN CORPUSCULAR HEMOGLOBIN 26.3 pg (28-32); MEAN CORPUSCULAR HGB CONC 31.3 g/dL (31-35); MONOCYTES # (AUTO) 0.2 (0.2-0.8); MONOCYTES % 3.4 % (4.4-11.3); NEUTROPHILS # (AUTO) 4.7 (2.1-6.9); NEUTROPHILS % 80.4 % (38.7-80.0); PLATELET COUNT 90 x10e3/uL (140-360); RED CELL DISTRIBUTION WIDTH 16.6 % (11.7-14.4)
[2018-01-08] MEDS ORDERED: LIDOCAINE HCL 2% LOCAL 20 ML VIAL ONE ×2 (11:14→11:46)
[2018-01-08] MEDS ORDERED: HEPARIN SOD/SOD CHLORIDE 2,000 ML ONE (11:14)
[2018-01-08 11:20] LABS: INR 1.14; PROTHROMBIN TIME 13.7 seconds (11.9-14.5)
[2018-01-08] MEDS ORDERED: SODIUM CHLORIDE 0.9% 1000ML 1,000 ML ONE (11:20)
[2018-01-08 11:21] LABS: PARTIAL THROMBOPLASTIN TIME 27.5 seconds (23.8-35.5)
[2018-01-08] MEDS ORDERED: HEPARIN SOD (PORCINE) 1000 UNIT/ML 30ML ONE (11:27)
[2018-01-08] MEDS ORDERED: MIDAZOLAM HCL 2 MG/2 ML VIAL ONE (11:27)
[2018-01-08] MEDS ORDERED: IOPAMIDOL 300MG/ML 100 ML INFUS..BTL IV ONE (11:28)
[2018-01-08] MEDS ORDERED: FENTANYL CITRATE/PF 100MCG/2 ML INJ ONE (11:28)
[2018-01-08] MEDS ORDERED: NITROGLYCERIN/D5W 200 MCG/ML 0 ML ONE (11:28)
[2018-01-08 11:29] LABS: ALANINE AMINOTRANSFERASE 28 IU/L (0-55); ALBUMIN 3.4 g/dL (3.5-5.0); ALBUMIN/GLOBULIN RATIO 0.9 (0.8-2.0); ALKALINE PHOSPHATASE 383 IU/L (40-150); ANION GAP 12.5 mmol/L (8-16); BLOOD UREA NITROGEN 17 mg/dL (7-26); BUN/CREATININE RATIO 19 (6-25); CALCIUM 9.9 mg/dL (8.4-10.2); CARBON DIOXIDE 24 mmol/L (22-29); CHLORIDE 108 mmol/L (98-107); CREATINE KINASE 50 IU/L (29-168); EST GLOMERULAR FILTRATION RATE > 60 ML/MIN (60-); GLUCOSE 182 mg/dL (74-118); MAGNESIUM 1.3 MG/DL (1.3-2.1); POTASSIUM 3.5 mmol/L (3.5-5.1); SODIUM 141 mmol/L (136-145)
[2018-01-08] MEDS ORDERED: BIVALIRUDIN 250 MG/VIAL IV ONE (11:46)
[2018-01-08] MEDS ORDERED: EPTIFIBATIDE 0 ML ONE (11:46)
[2018-01-08 11:48] LABS: THYROID STIMULATING HORMONE 0.767 uIU/mL (0.350-4.940)
[2018-01-08] MEDS ORDERED: SODIUM CHLORIDE FLUSH 10 ML SYR INJ PRN (12:00)
[2018-01-08] MEDS ORDERED: IOPAMIDOL 370 MG/ML 200 ML INFUS..BTL INJ ONE (12:03)
[2018-01-08] MEDS ORDERED: ASPIRIN 81 MG CHEW TAB ONE (12:15)
--- OUTSIDE RECORDS SUMMARY | 2018-01-08 12:18 | XMS REPORT | Continuity of Care Document ---
Author Author [facility] Organization [facility] Address [address] [place] [address] Phone Unavailable Care Team Providers Care Corporate Analyst Name Role Phone NONSTAFF PCP Unavailable Insurance Providers Guarantor Adia Yusuf Address [address] [place] [address] Email PT DECLINED Payer Medicaid Pending Subscriber's Name Adia Yusuf Advance Directives Directive Response Recorded Date/Time Does the patient have an advance directive? No 11/23/17 9:38pm If yes, is advance directive on file with [facility]? No 11/23/17 9:38pm If not on file with [facility] will patient provide a copy? No 11/23/17 9:38pm Do you have a Directive to Physician? No 01/08/18 11:01am Do you have a Medical Power of Rn Gastroenterology? No 01/08/18 11:01am Do you have an out of hospital Do Not Resuscitate Order? No 01/08/18 11:01am Do you have any special needs we should be aware of? No 01/08/18 11:01am Do you have a support person here with you today? Yes 01/08/18 11:01am Did patient receive Notice of Privacy Practices? Yes 01/08/18 11:01am Did patient receive patient rights and responsibilities? Yes 01/08/18 11:01am Problems Medical Problem Onset Date Status Anemia [...] Daily PROTONIX THERAPEUTIC SUBSTITUTE FOR NEXIUM PER [facility] Famotidine 20 Mg Tab 20 Mg [...] Applicable Smoking Status Start Date Stop Date Never Smoker Hospital Discharge Instructions No hospital discharge instruction information available. Plan of Care Discharge Date 01/08/18 11:26am Disposition ADMITTED Condition at Discharge Critical Forms Provided Work/School Excuse Prescriptions See Medication Section Additional Instructions/Education patient transfered to woven label designer on zole monitor. Functional Status No functional status information available. Allergies, Adverse Reactions, Alerts Allergen Type Severity [...] Blood Pressure 110/57 mm Hg 11/30/2017 3:46pm Results Laboratory Results Test Name Result Units Flags Reference Collection Date/Time Result Date/ Time Comments Sodium Level 139 mmol/L 136-145 11/28/2017 6:33am 11/28/2017 7:43am Potassium Level 4.4 mmol/L 3.5-5.1 11/28/2017 6:33am 11/28/2017 7:43am Chloride Level 107 mmol/L 98-107 11/28/2017 6:33am 11/28/2017 7:43am Carbon Dioxide Level 24 mmol/L 22-29 11/28/2017 6:33am 11/28/2017 7: 43am Anion Gap 12.4 mmol/L 8-16 11/28/2017 6:33am 11/28/2017 7:43am Blood Urea Nitrogen 12 mg/dL 7-11/28/2017 6:33am 11/28/2017 7:43am Creatinine 0.85 mg/dL 0.57-1.11 11/28/2017 6:33am [...] 9: 09am Yasmine ECLIA methodology Performed at: [facility] [id number] Office Services Clerk: Cosme Martinez MD, Phone: [phone] Hepatitis B Surface Antigen Negative 11/24/2017 10:25am 11/27/2017 9:50am Hepatitis C Antibody 0.1 11/24/2017 10:25am 11/27/2017 9:50am Reference Range: 0.0 - 0.9 s/co ratio Negative: < 0.8 Indeterminate: 0.8 - 0.9 Positive: > 0.9 The CDC recommends that a positive HCV antibody result be followed up with a HCV Nucleic Acid Amplification test ([id number]). [facility] [address] Dir: Cosme Martinez MD For inquiries, the physician may contact Branch: [phone] Lab: [phone] White Blood Count 5.81 x10e3/uL 4.8-10.8 01/08/2018 10:57am 01/08/2018 11:09am Red Blood Count 4.00 x10e6/uL 3.6-5.1 01/08/2018 10:57am 01/08/2018 11: 09am Hemoglobin 10.5 g/dL L 12.0-16.0 01/08/2018 10:57am 01/08/2018 11:09am Hematocrit 33.6 % L 34.2-44.1 01/08/2018 10:57am 01/08/2018 11:09am Mean Corpuscular Volume 84.0 fL 81-99 01/08/2018 10:57am 01/08/2018 11: 09am Mean Corpuscular Hemoglobin 26.3 pg L 28-32 01/08/2018 10:57am 2017 11:09am Mean Corpuscular Hemoglobin Concent 31.3 g/dL 31-35 01/08/2018 10:57am 01/08/2018 11:09am Red Cell Distribution Width 16.6 % H 11.7-14.4 01/08/2018 10:57am 2017 11:09am Platelet Count 90 x10e3/uL L 140-360 01/08/2018 10:57am 01/08/2018 11: 09am Neutrophils (%) (Auto) 80.4 % H 38.7-80.0 01/08/2018 10:57am 01/08/2018 11:09am Lymphocytes (%) (Auto) 14.3 % L 18.0-39.1 01/08/2018 10:57am 01/08/2018 11:09am Monocytes (%) (Auto) 3.4 % L 4.4-11.3 01/08/2018 10:57am 01/08/2018 11: 09am Eosinophils (%) (Auto) 1.2 % 0.0-6.0 01/08/2018 10:57am 01/08/2018 11: 09am Basophils (%) (Auto) 0.5 % 0.0-1.0 01/08/2018 10:57am 01/08/2018 11: 09am IM GRANULOCYTES % 0.2 % 0.0-1.0 01/08/2018 10:57am 01/08/2018 11:09am Neutrophils # (Auto) 4.7 2.1-6.9 01/08/2018 10:57am 01/08/2018 11: 09am Lymphocytes # (Auto) 0.8 L 1.0-3.2 01/08/2018 10:57am 01/08/2018 11: 09am Monocytes # (Auto) 0.2 0.2-0.8 01/08/2018 10:57am 01/08/2018 11:09am Eosinophils # (Auto) 0.1 0.0-0.4 01/08/2018 10:57am 01/08/2018 11: 09am Basophils # (Auto) 0.0 0.0-0.1 01/08/2018 10:57am 01/08/2018 11:09am Absolute Immature Granulocyte (auto 0.01 x10e3/uL 0-0.1 01/08/2018 10: 57am 01/08/2018 11:09am Prothrombin Time 13.7 seconds 11.9-14.5 01/08/2018 10:57am 01/08/2018 11:24am Prothromb Time International Ratio 1.14 01/08/2018 10:57am 2017 11:24am Oral Anticoagulant Therapy INR Values: 1. Low Intensity Therapy 1.5 - 2.0 2. Moderate Intensity Therapy 2.0 - 3.0 3. High Intensity Therapy(1) 2.5 - 3.5 4. High Intensity Therapy(2) 3.0 - 4.0 5. Panic Value INR > 5.0 Activated Partial Thromboplast Time 27.5 seconds 23.8-35.5 01/08/2018 10 :57am 01/08/2018 11:24am Procedures Procedure Status Date Provider(s) OCCLUSION ESOPHAGEAL VEIN W EXTRALUM DEV, PERC ENDO Completed 11/27/17 SHYAM BAEZA MD EXCISION OF DUODENUM, ENDO, DIAGN Completed 11/27/17 SHYAM BAEZA MD EXCISION OF STOMACH, PYLORUS, ENDO, DIAGN Completed 11/27/17 SHYAM BAEZA MD US liver Active 11/24/17 CATARINO HIDALGO MD Computed tomography of abdomen and pelvis without then with contrast Active 11/27/17 SHYAM BAEZA MD Encounters Encounter Location Arrival/Admit Date Discharge/Depart Date Attending Provider Departed Emergency Room [facility] 01/08/18 10:36am 01/08 11:26am LAUREN WYNNE MD Discharged Inpatient [facility] 11/23/17 3:28pm 11/30/17 4:53pm SUMIT WARE MD
--- OUTSIDE RECORDS SUMMARY | 2018-01-08 12:18 | XMS REPORT | Clinical Summary ---
Author Author [facility] Address Unknown Phone Unavailable Care Team Providers Care Bailer Operators Supervisor Name Role Phone PCP Unavailable Allergies Not on File Current Medications Not on file Active Problems Not on file Social History Tobacco Use Types Packs/Day Years Used Date Never Assessed Sex Assigned at Date Recorded Not on file Last Filed Vital Signs Not on file Plan of Treatment Not on file Results Not on fileafter 01/07/2017
--- OUTSIDE RECORDS SUMMARY | 2018-01-08 12:59 | XMS REPORT | Clinical Summary ---
Author Author [facility] Address Unknown Phone Unavailable Care Team Providers Care Aluminum Siding Installer Name Role Phone PCP Unavailable Allergies Not on File Current Medications Not on file Active Problems Not on file Social History Tobacco Use Types Packs/Day Years Used Date Never Assessed Sex Assigned at Date Recorded Not on file Last Filed Vital Signs Not on file Plan of Treatment Not on file Results Not on fileafter 01/07/2017
[2018-01-08] MEDS ORDERED: ONDANSETRON HCL INJ 2 MG/ML VIAL ONE (14:24)
[2018-01-08] MEDS ORDERED: PROMETHAZINE 25MG/ NS 50ML (IV) IV PRN (15:00)
[2018-01-08] MEDS ORDERED: NITROGLYCERIN 0.4 MG SUBL SL PRN (15:00)
[2018-01-08] MEDS ORDERED: HYDROMORPHONE 1MG/1ML INJ IV PRN (15:00)
[2018-01-08] MEDS ORDERED: TRAMADOL HCL 50 MG TAB PO PRN (15:00)
[2018-01-08] MEDS ORDERED: ONDANSETRON HCL INJ 2 MG/ML VIAL IV PRN (15:00)
--- NOTE | 2018-01-08 15:04 | Diagnostic Imaging Report ---
PROCEDURE:CHEST SINGLE (PORTABLE) TECHNIQUE:Portable AP chest INDICATION:Post STEMI COMPARISON:[facility], , CHEST SINGLE (PORTABLE), 11/23/2017, 9:09. FINDINGS: Multifocal airspace opacities more prominent in the perihilar regions. Cardiomegaly. Postoperative sequela of CABG; fractured midline wires. Intact skeleton. CONCLUSION: Cardiomegaly with mild pulmonary edema. Dictated by: Hector Sharma M.D. on 01/08/2018 at 15:05 Electronically approved by: Hector Sharma M.D. on 01/08/2018 at 15:05
--- NOTE | 2018-01-08 15:16 | Operative Report ---
DATE OF PROCEDURE: January 08, 2018 TITLE OF PROCEDURE: Left cardiac catheterization with graft injection. INDICATIONS: Acute myocardial infarction called to me from the emergency room. TECHNICAL DETAILS: Patient came to this institution to the emergency room with severe chest pain. Patient was rushed to the laborer mine. Patient seen and evaluated by me in the laborer mine. Apparently she is a patient of Dr. Owens and she is followed by him, last seen in November. However, prior details were not available prior to the cath. From what we can gather, she is having severe chest pain. ST-segment changes in the inferolateral leads were noted by ER physician. Acute inferior wall ST elevation myocardial infarction is called. Patient rushed to the laborer mine. Patient is seen in the laborer mine. Her pain seems to be better. She is in bed. A right common femoral arterial access was established and the procedure started. Technical detail: After the usual sterile preparation and draping procedure, intravenous Versed and fentanyl were given for sedation and local Xylocaine for anesthesia. A 4-Armenian sheath was established in place. JL4 showed no good sitting in the left main. Attention was made to 3DRC. The patient had THEODORE and 2 saphenous vein graft injections. It was obvious the THEODORE is occluded, and the saphenous vein graft to the RCA is occluded. The SVG to OM is patent. [place] right coronary artery showed total occlusion with collateral from conus and small branches as well as from the left system. An AL1 was used to engage the left main where good opacification of the left main, LAD and left system arteries were done. Subsequently pigtail is used for left ventriculogram and hemodynamic measurement. At the end of the procedure, the sheath was removed. Hemostasis was achieved manually. No complications. No blood loss. RESULTS A. Coronary angiogram: 1. The left main is calcified subtotal with flow to the LAD very proximally 90% and then distally it got a few plaques at 50% to 60%. 2. LAD giving very high diagonal. First diagonal almost like ramus with 80% lesion at 2 locations. 3. Circumflex coronary artery is totally occluded. 4. Right coronary artery is totally occluded. 5. THEODORE to LAD is occluded. 6. SVG to the right coronary artery is occluded. 7. SVG to the OM is patent. B. Left ventriculogram in the right anterior oblique view showed left ventricular ejection fraction of 30% with moderate to severe mitral regurgitation. C. Hemodynamics: Aorta pressure 130/80. LV pressure 130/40. IMPRESSION 1. Left main and 3-vessel coronary artery disease. 2. Occluded left internal mammary artery to left anterior descending and saphenous vein graft to the obtuse marginal. 3. Patent saphenous vein graft to obtuse marginal. 4. Moderate to severe mitral regurgitation. 5. Left ventricular ejection fraction of 30%. COMPLICATIONS: None. BLOOD LOSS: None. DISPOSITION: Patient transferred to recovery area in stable condition. Call to Dr. Owens's team was done. Patient is to be admitted to their service, and they will take care of the patient. Job#: [id number]
--- NOTE | 2018-01-08 15:25 | Consultation ---
DATE OF CONSULTATION: January 08, 2018 CARDIAC EVALUATION This evaluation was done after the procedure. Patient 57, known with coronary artery disease, status post coronary artery bypass surgery following myocardial infarction in 2000 in [place] with 3-vessel coronary artery bypass surgery. In 2006 she had perforated gallbladder with colostomy and subsequent reversal. Patient was at this institution in November 2017 where she was seen and evaluated by Dr. Owens. At that time, it seems to be surgical consultation with Dr. Medrano was done. Patient was supposed to follow with Dr. Owens. However, she came to the emergency room today with symptoms and chest pain and congestive heart failure like symptoms. BRIEF CARDIAC EVALUATION: Patient seems to be having shortness of breath, chest pain. CHEST: Showing bilateral crackles. NECK: Elevation of jugular venous pulsation. Auscultation showing mitral regurgitation murmur. ABDOMEN: Obese. EXTREMITIES: Mild peripheral edema. IMPRESSION: 1. Heart failure. 2. Myocardial infarction. 3. Coronary artery disease. 4. History of liver cirrhosis as per records with low platelets. 5. Comorbidities. RECOMMENDATIONS: Patient care returned to Dr. Owens, her primary physician. His team was called and notified about the patient location. Job#: [id number] JINA
--- NOTE | 2018-01-08 15:28 | History and Physical ---
Ms. Yusuf is a 57-year-old female with history of coronary artery disease, status post CABG, prediabetes, hypertension, hyperlipidemia, anxiety. Yesterday at 4 p.m. she started having chest pain. She took nitroglycerin, and the pain got better, but not resolved. She had several episodes of pain where she used nitroglycerin. Today at 4 in the morning, she started having the pain again. It got worse, so she decided to come to the emergency room. She was also feeling very weak, having vomiting and diarrhea. PAST MEDICAL HISTORY: Coronary artery disease, status post CABG in 2000, prediabetes, hypertension, hyperlipidemia, depression, anxiety, history of atrial fibrillation and anemia. SOCIAL HISTORY: She smokes 1 pack of cigarettes every 3 days. She does not drink alcohol. SURGICAL HISTORY: She had CABG in 2000, and cholecystectomy. ALLERGIES: NO KNOWN DRUG ALLERGIES. PHYSICAL EXAMINATION GENERAL: Today, the patient is awake and alert. She is not feeling very good. VITALS: Pulse 102, blood pressure 152/75. HEART: Regular rate. LUNGS: Poor inspiratory effort. ABDOMEN: Distended and soft. LOWER EXTREMITIES: No edema. BLOOD WORK: White count 5.81, hemoglobin 10.5, hematocrit 33.6. BNP is 1007. The 1st set of CK negative. Potassium 3.5, creatinine 0.90, glucose 182. Chest x-ray is still pending. Apparently the patient came to the emergency room with chest pain, and she was taken to the lab aid by Dr. Rabago who found that she had several occlusions. She has 90% LAD. As per the patient and the family, she was told she needed another CABG a few months ago, but they refused. ADMITTING DIAGNOSES 1. Chest pain and unstable angina in a patient who has coronary artery disease, status post coronary artery bypass graft, and 90% left anterior descending occlusion. 2. [id number] systolic congestive heart failure with ejection fraction of 30%. 3. Prediabetes. 4. Hypertension. 5. Hyperlipidemia. 6. Depression. 7. Anxiety. 8. History of atrial fibrillation. PLAN AT PRESENT TIME: The patient was taken to the lab aid by Dr. Rabago. Apparently, Dr. Liu is going to be following her. She had a 90% LAD, and apparently the recommendation is another CABG. We are going to let the housekeeping and laundry team leader review the angiogram and then discuss with the patient and the family which is the next approach regarding her coronary problem. I already spoke with her. All questions were answered to her satisfaction. The overall prognosis of the patient is very guarded. Job#: [id number]
--- OUTSIDE RECORDS SUMMARY | 2018-01-08 16:11 | XMS REPORT | Clinical Summary ---
Author Author OMAR [facility] Address Unknown Phone Unavailable Care Team Providers Care Ticker Wirer Name Role Phone PCP Unavailable Allergies Not on File Current Medications Not on file Active Problems Not on file Social History Tobacco Use Types Packs/Day Years Used Date Never Assessed Sex Assigned at Date Recorded Not on file Last Filed Vital Signs Not on file Plan of Treatment Not on file Results Not on fileafter 01/07/2017
[2018-01-08] MEDS ORDERED: ENOXAPARIN SODIUM INJ 100 MG/ML SYR SC SCH (16:15)
[2018-01-08] MEDS: FUROSEMIDE INJ 10 MG/ML 4 ML VIAL IV SCH ×2 (16:17→20:36)
[2018-01-08] MEDS ORDERED: FUROSEMIDE INJ 10 MG/ML 4 ML VIAL ONE (16:17)
[2018-01-08] MEDS: ENOXAPARIN INJ 80 MG/0.8 ML SYR SC SCH ×2 (17:28→18:21)
[2018-01-08] MEDS: FAMOTIDINE 20 MG TAB PO SCH (17:29)
[2018-01-08] MEDS ORDERED: FAMOTIDINE 20 MG TAB ONE (17:34)
--- NOTE | 2018-01-08 17:48 | Consultation ---
DATE OF CONSULTATION: January 08, 2018 CHIEF COMPLAINT: The patient is a 57-year-old with chest pain. HISTORY OF PRESENT ILLNESS: The patient is a 57-year-old with known coronary artery disease, previous coronary artery bypass grafting who came to the emergency room with chest pain. Initially, the patient was tachycardiac and there was some weight-related ST elevation in the inferior leads. ST elevation myocardial infarction was subsequently called by the emergency room and emergency cardiac catheterization was done by Dr. Rabago. Emergency catheterization demonstrated 100% occlusion of the left internal mammary artery, 100% occlusion of the saphenous vein graft to the right coronary artery and a patent saphenous vein graft to the obtuse marginal branch of the circumflex. The ejection fraction was about 35% with hypokinesis of the anterior wall and apex. The modoc vessels were severely diseased. No intervention was performed. The patient's cardiac catheterization was basically unchanged from the recent catheterization done on September [address] Zimmerman. The patient was also admitted to the hospital at [facility] in November 2017, about 3 weeks ago. Coronary artery bypass grafting was recommended and the patient was seen by cardiovascular surgery, but the patient declined surgery. PAST MEDICAL HISTORY: 1. Intermittent atrial fibrillation. 2. Hypertension. 3. Previous coronary artery bypass grafting with 3 grafts. 4. Hyperlipidemia. HOME MEDICATIONS: Lasix, metoprolol, losartan, and aspirin. SOCIAL HISTORY: The patient does not drink or smoke. Both the patient's father and mother had coronary artery disease. PHYSICAL EXAMINATION GENERAL: The patient is well-nourished, well-developed female in no obvious distress. VITAL SIGNS: Temperature 98.4, pulse 110, blood pressure 136/80. HEENT: The patient's cranium was normocephalic and atraumatic. Extraocular muscles were intact. Sclerae were anicteric. Pupils were equal, round, and reactive to light. There was no pallor or cyanosis of the oral mucosa. There is no erythema or edema of the throat. NECK: Supple. No jugular venous distention. No carotid bruits. CHEST: Clear to auscultation and percussion. CARDIAC: Demonstrated normal S1 and S2 with a short 2/6 systolic murmur. ABDOMEN: Demonstrated good bowel sounds, no tenderness, and no masses. EXTREMITIES: No cyanosis, clubbing or edema. NEUROLOGIC: The patient was alert and oriented x3. Cranial nerves II-XII are intact. Motor strength was +5/+5 in all limbs. The patient's EKG demonstrated sinus tachycardia with ST depression consistent with left ventricular hypertrophy. IMPRESSION: The patient is a 57-year-old with an acute coronary syndrome. The cardiac catheterization has already been repeated and is unchanged from the cardiac catheterization done in August 2017. RECOMMENDATIONS: 1. I feel the patient will need to be diuresed with IV Lasix. 2. The patient has been started on Lovenox 1 mg per kilogram subcu q.12 h. 3. The patient will need to be evaluated for redo coronary artery bypass grafting. 4. The patient will need to continue on the losartan and metoprolol. 5. Carotid Duplex and echocardiogram have been ordered. Job#: [id number]
[2018-01-08 19:38] LABS: CREATINE KINASE MB 23.9 ng/mL (0-5.0)
[2018-01-08] MEDS ORDERED: ATORVASTATIN 40 MG TAB PO SCH (21:00)
[2018-01-08] MEDS ORDERED: FENOFIBRATE 145 MG TAB PO SCH (21:00)
[2018-01-09] VITALS (17 sets, daily range): BP systolic 82–138; BP diastolic 49–80
[2018-01-09] MEDS ORDERED: SODIUM CHLORIDE 0.9% 1000ML 1,000 ML ONE (00:19)
[2018-01-09 02:57] LABS: CREATINE KINASE MB 17.5 ng/mL (0-5.0)
[2018-01-09 06:24] LABS: BASOPHILS % 0.3 % (0.0-1.0); HEMATOCRIT 26.4 % (34.2-44.1); HEMOGLOBIN 8.3 g/dL (12.0-16.0); LYMPHOCYTES # (AUTO) 0.7 (1.0-3.2); LYMPHOCYTES % 9.8 % (18.0-39.1); MEAN CORPUSCULAR HEMOGLOBIN 26.4 pg (28-32); MEAN CORPUSCULAR HGB CONC 31.4 g/dL (31-35); MEAN CORPUSCULAR VOLUME 84.1 fL (81-99); MONOCYTES # (AUTO) 0.4 (0.2-0.8); MONOCYTES % 5.4 % (4.4-11.3); NEUTROPHILS % 84.1 % (38.7-80.0); PLATELET COUNT 70 x10e3/uL (140-360); RED BLOOD COUNT 3.14 x10e6/uL (3.6-5.1); RED CELL DISTRIBUTION WIDTH 17.1 % (11.7-14.4)
[2018-01-09 07:06] LABS: ALANINE AMINOTRANSFERASE 23 IU/L (0-55); ALBUMIN 2.6 g/dL (3.5-5.0); ALBUMIN/GLOBULIN RATIO 0.8 (0.8-2.0); ALKALINE PHOSPHATASE 245 IU/L (40-150); ANION GAP 10.4 mmol/L (8-16); BLOOD UREA NITROGEN 19 mg/dL (7-26); BUN/CREATININE RATIO 23 (6-25); CALCIUM 8.9 mg/dL (8.4-10.2); CARBON DIOXIDE 25 mmol/L (22-29); CHLORIDE 112 mmol/L (98-107); CHOLESTEROL 152 MD/DL (0-199); CREATININE, SERUM 0.82 mg/dL (0.57-1.11); EST GLOMERULAR FILTRATION RATE > 60 ML/MIN (60-); GLUCOSE 144 mg/dL (74-118); HDL CHOLESTEROL 51 MG/DL (40-60); LDL CHOLESTEROL 82 MG/DL (60-130); MAGNESIUM 1.3 MG/DL (1.3-2.1); PHOSPHORUS 3.1 MG/DL (2.3-4.7); POTASSIUM 3.4 mmol/L (3.5-5.1); SODIUM 144 mmol/L (136-145); TRIGLYCERIDES 97 MG/DL (0-149)
[2018-01-09 07:23] LABS: INR 1.34; PROTHROMBIN TIME 15.6 seconds (11.9-14.5)
[2018-01-09] MEDS: FAMOTIDINE 20 MG TAB PO SCH (08:58)
[2018-01-09] MEDS ORDERED: BUPROPION HCL 75 MG TAB PO SCH (09:00)
[2018-01-09] MEDS ORDERED: FUROSEMIDE 40 MG TAB PO SCH ×2 (09:00)
[2018-01-09] MEDS ORDERED: LOSARTAN POTASSIUM 25 MG TAB PO SCH (09:00)
[2018-01-09] MEDS ORDERED: CITALOPRAM HYDROBROMIDE 20 MG TAB PO SCH (09:00)
[2018-01-09] MEDS ORDERED: ASPIRIN 81 MG CHEW TAB PO SCH (09:00)
[2018-01-09] MEDS ORDERED: METOPROLOL TARTRATE 25 MG TAB PO SCH (09:00)
[2018-01-09] MEDS ORDERED: ASPIRIN 81 MG ENTERIC COATED PO SCH (09:00)
[2018-01-09] MEDS ORDERED: PANTOPRAZOLE SOD 40 MG TABEC PO SCH (09:00)
[2018-01-09] MEDS ORDERED: POTASSIUM CHLORIDE 20 MEQ TAB CR PO SCH (09:00)
--- NOTE | 2018-01-09 09:47 | Progress Note ---
DATE: NO DICTATION, LENGTH 0:2 Job#: [id number] RI
[2018-01-09 10:41] LABS: CREATINE KINASE MB 9.7 ng/mL (0-5.0)
--- NOTE | 2018-01-09 14:14 | Discharge Summary ---
Ms. Yusuf is a 57-year-old female with history of coronary artery disease status post CABG, diabetes, hypertension, hyperlipidemia, anxiety, who came to the emergency room complaining of 1 day of chest pain on and off. She was found to have some ST elevation. So, she came to the emergency room and went straight to the slab conditioner supervisor with Dr. Rabago. The catheterization showed 100% occlusion of the left internal mammary artery, 100% occlusion of the vein graft to the right coronary artery, and a patent saphenous vein to the obtuse marginal branch. Ejection fraction was about 35%. No intervention was performed. Apparently patient was here a few weeks ago. A coronary bypass was recommended, but patient declined the surgery. At present time, patient is still in the ICU and the plan is to transfer her to [facility]. PHYSICAL EXAMINATION GENERAL: She is awake and alert. She is feeling better. VITAL SIGNS: Temperature is 99.6. Blood pressure 109/64. HEART: Regular rate. LUNGS: Poor inspiratory effort. ABDOMEN: Distended and soft. LAB WORK: Potassium 3.4, creatinine is 0.82, glucose is 144. White count 7.17, hemoglobin 8.3, hematocrit 26.4. CHEST X-RAY: Shows some cardiomegaly with mild pulmonary edema. ASSESSMENT AND PLAN 1. Unstable angina and coronary artery disease with elevation of ST segment on admission. 2. History of coronary artery disease, status post coronary artery bypass graft. 3. Glejz-yq-cjmegci systolic congestive heart failure with ejection fraction of 30%. 4. Diabetes. 5. Hypertension. 6. Hyperlipidemia. 7. Depression. 8. Anxiety. The plan at present time is to continue furosemide, Protonix, citalopram, aspirin, atorvastatin, Lovenox, metoprolol, losartan. Control pain. We are waiting for a bed for her to be transferred to [facility] for another CABG. All this was discussed with patient. All questions were answered to satisfaction. If a bed is available, she is going to be transferred today. Please see home medication reconciliation list. SARAH SCHUMACHER MD Job#: [id number] EV
== END 2018-01-09 11:18 | disposition short-term general hospital (02) | DRG 280 ==
LOC: ER 10:36 → CATH LAB 12:16 → UNDOADMIN 12:56 → ICU 12:56
PROVIDERS: ADMIT Internal Medicine; ATTEND Internal Medicine
PROC: 4A023N7 Measurement of Cardiac Sampling and Pressure, Left Heart, Percutaneous Approach (ICD-10-PCS; principal; 2018-01-08)
PROC: B2151ZZ Fluoroscopy of Left Heart using Low Osmolar Contrast (ICD-10-PCS; principal; 2018-01-08)
PROC: B2131ZZ Fluoroscopy of Multiple Coronary Artery Bypass Grafts using Low Osmolar Contrast (ICD-10-PCS; principal; 2018-01-08)
PROC: B2181ZZ Fluoroscopy of Left Internal Mammary Bypass Graft using Low Osmolar Contrast (ICD-10-PCS; principal; 2018-01-08)
PROC: B2111ZZ Fluoroscopy of Multiple Coronary Arteries using Low Osmolar Contrast (ICD-10-PCS; principal; 2018-01-08)
DX: I21.3 ST elevation (STEMI) myocardial infarction of unspecified site (principal); I50.23 Acute on chronic systolic (congestive) heart failure; I25.82 Chronic total occlusion of coronary artery; K74.60 Unspecified cirrhosis of liver; I11.0 Hypertensive heart disease with heart failure; I25.110 Atherosclerotic heart disease of native coronary artery with unstable angina pectoris; I34.0 Nonrheumatic mitral (valve) insufficiency; F17.210 Nicotine dependence, cigarettes, uncomplicated; Z95.1 Presence of aortocoronary bypass graft; I48.91 Unspecified atrial fibrillation; Z79.01 Long term (current) use of anticoagulants; F32.9 Major depressive disorder, single episode, unspecified; F41.9 Anxiety disorder, unspecified; E11.9 Type 2 diabetes mellitus without complications
CPT/HCPCS: 36140; 36415; 71045; 77002; 80053; 80061; 82550; 82553; 83735; 83880; 84100; 84443; 84484; 85025; 85610; 85730; 93005; 93452; 93459; 99284; C1766; J0583; J1327; J1644; J1650; J1940; J2001; J2250; J2405; J2550; J7030; Q9967